=== PATIENT | male | born 1990 | race Hispanic/Latino ===

== ENCOUNTER 2020-03-01 20:22 | Emergency (ER) | payer OTHER ==
[2020-03-02 18:28] LABS: SARS-CoV-2 MS2 Positive; SARS-CoV-2 N Gene Positive; SARS-CoV-2 S Gene Positive; SARS-CoV-2 orf1ab Positive
== END 2020-03-01 21:16 | disposition home or self-care (01) ==
LOC: ERS 20:22
DX: U07.1 COVID-19 (principal); J06.9 Acute upper respiratory infection, unspecified; R50.9 Fever, unspecified; R05 Cough
CPT/HCPCS: 87635; 87804; 99283; U0003